=== PATIENT | female | born 1960 | race Caucasian/White ===

== ENCOUNTER → 2022-09-01 13:30 | Outpatient (CLI) | payer OTHER, SELFPAY ==
--- NOTE | 2022-09-01 13:34 | DI.MRI.S_ITS ---
PROCEDURE: MR LUMBAR SPINE WO CON INDICATIONS: Spinal stenosis, lumbar region TECHNIQUE: Noncontrast sagittal T1 spin echo and T2 fast echo, sagittal STIR, and T2 fast spin echo through the lumbar spine. In cases with scoliosis, additional coronal T2 fast spin echo may be performed. COMPARISON: [facility], MR, MR LUMBAR SPINE WITH/WITHOUT CONTRAST, 05/22/2021, 12:29. FINDINGS: Image quality: Excellent. Alignment and Curvature: Trace anterolisthesis L4-5. Otherwise normal alignment. Bone Marrow: L2 vertebral body hemangioma. Minor type 1 reactive Modic changes along the right aspect of the L3-4 level around small Schmorl's nodes. Marrow is otherwise of normal overall signal. No acute vertebral body compression fractures. Spinal Cord: Conus medullaris terminates at the L1 level. Visualized cord demonstrates normal signal and size. Paraspinous Soft Tissues: No paravertebral masses. There are several Tarlov cysts at the S2 level. T12-L1: Mild disc desiccation and height loss. Moderate anterior disc osteophyte. L1-L2: Normal appearance. L2-L3: Minor bilateral foraminal broad-based disc bulges. No foraminal or central canal stenosis. L3-L4: Moderate to large broad-based circumferential disc bulge effacing anterior CSF and flattening thecal sac. Moderate facet arthropathy. Moderate central canal stenosis, secondary to moderate dorsal epidural lipomatosis. This has progressed since the prior study. Minor bilateral foraminal narrowing. L4-L5: Slight disc uncovering and mild circumferential disc bulge. Prominent facet arthropathy and ligamentum flavum hypertrophy. Moderately severe central canal stenosis. Minimal change compared to the prior study. Minor bilateral foraminal narrowing. L5-S1: Chronic broad-based posterior, left central, and left foraminal disc osteophyte which encroaches on the left lateral recess and causes [id number] left foraminal narrowing. Moderate facet arthropathy at this level. IMPRESSION: 1. Progression of diffuse disc bulge at L3-4 resulting in moderate central canal stenosis. 2. Chronic, moderately severe central canal stenosis L4-5 without significant change. 3. Left foraminal narrowing, mild to moderate L5-S1. Dictated by: Rosana Cline M.D. on 09/02/2022 at 10:18 Approved by: Rosana Cline M.D. on 09/02/2022 at 10:56
== END ==
PROVIDERS: Referring Provider Orthopaedic Surgery Orthopaedic Surgery of the Spine; Visit Provider Orthopaedic Surgery Orthopaedic Surgery of the Spine
DX: M48.062 Spinal stenosis, lumbar region with neurogenic claudication (principal); M48.07 Spinal stenosis, lumbosacral region; M51.36 Other intervertebral disc degeneration, lumbar region
CPT/HCPCS: 72148

== ENCOUNTER → 2022-09-23 09:47 | Outpatient (CLI) | payer OTHER, SELFPAY ==
[2022-09-23 11:02] LABS: Add Manual Diff / Slide Review NO; Basophils Absolute Auto 100 /uL (0-100); Basophils Percent Auto 0.7 % (0-2); Eosinophils Absolute Auto 100 /uL (0-450); Eosinophils Percent Auto 1.7 % (2-4); Hematocrit 44.5 % (36-46); Lymphocytes Absolute Auto 3000 /uL (1100-4500); Lymphocytes Percent Auto 41.9 % (25-40); Mean Corpuscular HGB Conc 33.7 % (30-36); Mean Corpuscular Hemoglobin 31.1 PG (26-34); Mean Corpuscular Volume 92.2 fL (80-100); Monocytes Absolute Auto 700 /uL (0-900); Monocytes Percent Auto 10.1 % (3-14); Neutrophils Absolute Auto 3300 /uL (1500-7000); Neutrophils Percent Auto 45.6 % (50-75); Platelet Count 255 X10^3/uL (150-400); Red Blood Cell Count 4.83 X10^6/uL (4.0-5.2); Red Cell Distribution Width 12.9 % (11.6-14.8); White Blood Cell Count 7.2 X10^3/uL (4.5-11.0)
[2022-09-23 12:14] LABS: BUN Creatinine Ratio 15.8 (6-22); Blood Urea Nitrogen 12 mg/dL (7-17); Calcium 9.4 mg/dL (8.4-10.2); Carbon Dioxide 30 mmol/L (22-32); Chloride 104 mmol/L (98-107); Estimated Glomerular Filt Rate > 60 mL/min (>60); Glucose 95 mg/dL (70-100); HEMOLYSIS < 15 (0-50); Sodium 137 mmol/L (137-145)
[2022-09-24 07:10] LABS: Labcorp Hemoglobin (Hb) A1c 5.7 % (4.8-5.6)
== END ==
PROVIDERS: PCP Student in an Organized Health Care Education/Training Program; Referring Provider Orthopaedic Surgery Orthopaedic Surgery of the Spine; Visit Provider Orthopaedic Surgery Orthopaedic Surgery of the Spine
DX: Z01.818 Encounter for other preprocedural examination (principal); Z01.812 Encounter for preprocedural laboratory examination; R73.9 Hyperglycemia, unspecified
CPT/HCPCS: 36415; 80048; 83036; 85025; 93005; 93010

== ENCOUNTER → 2022-11-06 15:11 | Outpatient (CLI) | payer OTHER, SELFPAY ==
--- NOTE | 2022-11-06 15:14 | DI.CT.S_ITS ---
PROCEDURE: CT LUMBAR SPINE WO CON INDICATIONS: LUMBAR STENOSIS TECHNIQUE: Noncontrast 3 mm thick sections acquired from the T12 level to the sacrum. Sagittal and coronal reformats were constructed. For radiation dose reduction, the following was used: automated exposure control. COMPARISON: [facility], MR, MR LUMBAR SPINE WO CON, 09/01/2022, 13:51. FINDINGS: Image quality: Excellent. Bones: 3 mm grade 1 anterolisthesis at L4-5. No acute vertebral body compression fractures. No suspicious lytic or blastic bony lesions. No pars defects. Typically incidental Tarlov cysts are seen in the sacrum. T12-L1: Mild loss of disc space height with mild disc bulging, which does not result in significant spinal canal stenosis or neural foraminal narrowing. L1-L2: No significant spinal canal stenosis or neural foraminal narrowing. L2-L3: No significant spinal canal stenosis or neural foraminal narrowing. L3-L4: Moderate circumferential disc bulging is seen as well as mild bilateral facet hypertrophy and buckling of the ligamentum flavum. Findings result in moderate narrowing of the spinal canal and mild bilateral neural foraminal narrowing. L4-L5: Grade 1 anterolisthesis with uncovering of the disc space and circumferential disc bulging as well as moderate to severe bilateral facet hypertrophy and buckling of the ligamentum flavum. Findings result in moderate to severe narrowing of the spinal canal as well as mild bilateral neural foraminal narrowing. L5-S1: Loss of disc space height with circumferential disc-osteophyte complex and mild bilateral facet hypertrophy, which result in moderate left and mild right neural foraminal narrowing. Soft tissues: No retroperitoneal masses or hematomas. Visualized aorta is normal in caliber. Status post cholecystectomy. Colonic diverticulosis. IMPRESSION: 1. At L4-5, degenerative changes and grade 1 anterolisthesis result in moderate to severe narrowing of the spinal canal and mild bilateral neural foraminal narrowing. 2. At L3-4, degenerative changes result in moderate narrowing of the spinal canal and mild bilateral neural foraminal narrowing. 3. Additional multilevel degenerative disc disease and facet hypertrophy as described in detail in the body of the report. No high-grade neural foraminal narrowing. Approved by: Napoleon Zambrano M.D. on 11/07/2022 at 12:31
== END ==
PROVIDERS: PCP Student in an Organized Health Care Education/Training Program; Referring Provider Orthopaedic Surgery Orthopaedic Surgery of the Spine; Visit Provider Orthopaedic Surgery Orthopaedic Surgery of the Spine
DX: M48.062 Spinal stenosis, lumbar region with neurogenic claudication (principal); M48.07 Spinal stenosis, lumbosacral region; M47.816 Spondylosis without myelopathy or radiculopathy, lumbar region; M47.817 Spondylosis without myelopathy or radiculopathy, lumbosacral region; M51.36 Other intervertebral disc degeneration, lumbar region; M43.16 Spondylolisthesis, lumbar region
CPT/HCPCS: 72131

== ENCOUNTER 2022-12-11 10:07 | Inpatient (IN) | payer OTHER, SELFPAY ==
[2022-11-11 16:33] VITALS: BMI 35.5
[2022-12-11] VITALS (10 sets, daily range): BP systolic 95–135; BP diastolic 66–90; PULSE 86–109; RESP 9–17; TEMP 35.8–37.1; O2SAT 94–111; BMI 35.8
--- NOTE | 2022-12-11 | DI.RAD.S_ITS ---
PROCEDURE: XR LUMBAR SPINE 2-3V INDICATIONS: L4-5 L5-S1 TLIF TECHNIQUE: Two spot fluoroscopic intraoperative images of the lumbar spine were acquired. COMPARISON: [facility] [place] [facility] XR LUMBAR SPINE 2 OR 3 VIEWS, 08/22/2022, 15:01. FINDINGS: Fluoroscopy was utilized for intraoperative guidance. Two spot images demonstrate posterior fixation hardware at the L4 through S1 levels with bilateral pedicle screws and interbody rods as well as disc spacers. IMPRESSION: Intraoperative images demonstrate posterior fixation changes at L4-5 and L5-S1. Approved by: Napoleon Zambrano M.D. on 12/11/2022 at 18:43
[2022-12-11] MEDS: GABAPENTIN 300 MG CAPSULE PO (10:57)
[2022-12-11] MEDS: ACETAMINOPHEN 325 MG TABLET 975 MG PO (10:57)
[2022-12-11] MEDS: LACTATED RINGERS 1,000 ML 42 ML IV (10:57)
--- NOTE | 2022-12-11 11:31 | PM.PREOP ---
Pre-operative Note COVID-19 Criteria for continued procedure: Expected advancement of disease process, Possibility delay results in more complex future surgery or treatment, Increased loss of function, Continuing or worsening of significant or severe pain, Deterioration of the patient's condition or overall health and Delay expected to result in less-positive ultimate med/surg outcome Interval Note History & Physical reviewed/Exam performed by Physician: Yes Changes to H&P: No
[2022-12-11] MEDS: CEFAZOLIN 2 GM/100 ML PREMIX 100 ML IV (12:25)
[2022-12-11] MEDS: BUPIVACAINE 0.25% (PF) 60 ML, EPINEPHrine 0.15 MG INJ (13:32)
[2022-12-11] MEDS: BUPIVACAINE LIPOSOME 266 MG/20 ML VIAL INJ (13:32)
--- NOTE | 2022-12-11 14:37 | SUR.OPER ---
Prone on spine table, head in foam head support, padded chest and pelvic supports, gel pad at knees, lower legs supported by pillows; nipples, genitalia and toes free of pressure, arms secured on foam padded arm boards at <90 degrees abduction. Tape over blanket at thigh secured to table.
--- NOTE | 2022-12-11 16:21 | P.OP_ITS ---
Operative Date/Time/Diagnoses Date of procedure: 12/11/22 Time of procedure: 12:30 Pre-op diagnosis: 1. L4-5, L5-S1 spinal stenosis with neurogenic claudication 2. L4-5, L5-S1 spondylosis with radiculopathy Post-op diagnosis: same Procedure & Clinicians Procedure: 1. L4-5, L5-S1 Postero-lateral and posterior interbody fusion 2. L4-5, L5-S1 interbody cage placement. 3. L4-5, L5-S1 decompressive laminectomy with bilateral facetecomies 4. L4-5, L5-S1 Posterior segmental instrumentation 5. [place] of bone marrow from iliac crest 6. Utilization of microsurgical technique and operating microscope Same procedure as scheduled: Yes Indications: Patient has been having chronic back pain and worsening lumbar radiculopathy and symptoms of neurogenic claudication. Patient failed multiple conservative management with worsening pain weakness and numbness in her lower extremity. Patient has been having difficulty performing activity of daily living. After discussing risks benefits of treatment options, patient elected proceed with surgery. Surgeon: Ignacio Hall Client Relations Specialist: Padmaja Briseno Click Yes if Unassisted: No Anesthesia Type: General Operative Notes Closure Type: primary Specimen(s): none sent Prosthetic devices, grafts, tissues, transplants, or devices: Globus CREO MIS screws, Rise cages Applied: catheter Estimated Blood Loss (mL): 100 Blood products transfused: none Procedure in detail: Patient was seen in the preoperative area. Risks and benefits of the surgery was discussed with the patient. Informed consent was obtained from the patient and placed in the chart. Surgical site was marked. Patient was taken to the operative room. General anesthesia was administered. Prophylactic antibiotic was given to the patient less than 30 min before the incision was made. Patient was placed into a prone position on the Ovi table. Patient's back was then prepped and draped in the sterile fashion. Time-out was performed at this time. After patient was prepped and draped, patient's PSIS was palpated and marked bilaterally. Small 1 cm incision was made over the PSIS for placement of the reference probes. Two trocar was placed into the PSIS 1 on each side. The reference probe was attached to the trocar of the reference apparatus. At this time the C-arm imaging was used to confirm AP and lateral of L4-L5, L5- S1 vertebrae and merged the C-arm imaging using the [employer] robotic navigation system with the CT of the lumbar spine. After successful merging was completed and confirmed, skin marker was used to clay out the skin incision using the [employer] robotic arm. Bilateral incision was made at this time. Pre templated trajectory was used and guided using the [employer] robotic navigation system for bilateral L4, L5, S1 pedicle screw placement. This was done by using the robotic arm to guide the high-speed bur to make a cortical entry point. Next a drill was placed also using the robotic arm and guided using the navigation system drilling partially through bilateral L4, L5 and S1 pedicles. Next L4, L5, S1 pedicle screws it was pre templated and measured was placed onto the power feeder driver and inserted into the pedicles bilaterally. After all 6 screws were placed C-arm imaging was taken of both AP and lateral to confirm the placement. Excellent placement of the screws were confirmed and a matched precisely with the pre planned screw placement using the navigation system. MARs retractor was inserted using Soricimedivation guidence. Globus MARS retractors was placed inside the incision and docked onto the L4 and L5 lamina. Using microsurgical technique and operating microscope, a L4, L5 laminectomy and L4-5, L5-S1 facetectomy was performed using a Kerrison rongeur. The laminectomy and facetectomy was performed in order to decompress patient's cauda equina as well as the nerve roots exiting at the L4-5, L5-S1 level. Patient was found have severe lateral recess and neural foramen stenosis which was fully decompressed after the laminectomy facetectomy. More than 75% of the facets were removed during the process of decompression rendering L4-5, L5-S1 level grossly unstable and required a fusion procedure at the same time. The disc space at L4-5, L5-S1 was identified, and a total diskectomy was performed at L4-5, L5-S1 level. The endplates were decorticated using a rasp and shaver. The total diskectomy and decortication was performed at L4-5, L5-S1 level in order to to accomplish a L4- 5, L5-S1 fusion. The local bone from the laminectomy and facetectomy was saved for local bone grafting. After the total diskectomy and decortication was completed, Trifecta bone graft material was combined with local bone that was harvested earlier. At this time, a separate skin is incision was made over the iliac crest. A Jamshidi needle was inserted into the iliac crest through a separate skin incision. 5 cc of bone marrow aspiration was obtained through the separate skin incision using a Jamshidi needle from the iliac crest. The bone marrow aspiration was combined with local bone and the Trifecta bone grafting material. The bone grafting material was placed into the L4-5, L5-S1 interbody space along with a expandable cage. The cage was expanded to its maximum height using the torque limiting screwdriver. The disc preparation as well as the cage insertion were also performed under navigation guidance. After the cage was placed, AP and lateral C-arm imaging was taken to confirm placement of the cage and excellent position was confirmed. Globus MARS retractor was inserted and docked onto the L4-5, L5-S1 posterolateral gutter on the right side. Using the power drill, posterior- lateral decortication was performed at L4-5, L5-S1 level until bleeding cortical bone was identified. The remaining bone grafting material was placed into the L4-5, L5-S1 posterior lateral gutter he order to accomplish posterolateral fusion at the L4-5, L5-S1 level. At this time the tulips were attached to the L4, L5, S1 pedicle screw shanks. After measuring the length of the rods, they were inserted into the tulips of the pedicle screws and locked in place using locking caps and torque limiting screwdriver bilaterally. Total 6 caps and 2 titanium rods was used in order to complete the posterior instrumentation construct. After all the hardware was placed, and confirmed with AP and lateral C-arm imaging, the wound was then irrigated with sterile normal saline and packed with Ray-Siri gauze for 3 min to accomplish hemostasis. After the gauze was removed the deep fascia was closed with #1 Vicryl suture. The subcutaneous layer was c losed with 2-0 Vicryl. The skin was closed with skin leola. Patient tolerated the procedure well. There were no complications. The Operation could not have been safely performed without compromising the technical result or length of the procedure, without the assistance of a skilled instructor adjunct surgical technician. The instructor adjunct surgical technician was medically necessary for proper positioning, retraction and manipulation of instruments, proper exposure, surgical preparation, and manipulation of tissue. Neuro monitoring system was used to monitor patient's neurologic status throughout entire procedure. There was no disturbance of the neural monitoring signals throughout the case. Complications: none Post-operative Condition: stable Disposition: PACU Plan for aftercare: Admit to inpatient hospital
[2022-12-11] MEDS: HYDROMORPHONE 1 MG INJ IV (16:54)
[2022-12-11] MEDS: OXYCODONE IR 5 MG TABLET PO (17:00)
[2022-12-11] MEDS: LACTATED RINGERS 1,000 ML 125 ML IV (17:51)
[2022-12-11] MEDS: CEFAZOLIN VIAL 3 GM in SODIUM CHLORIDE 0.9% 100 ML IV (20:47)
[2022-12-11] MEDS: TIMOLOL 0.5% OPHTH 1 DROPS EYE-BOTH (20:48)
[2022-12-11] MEDS: SENNOSIDES 8.6 MG TABLET 17.2 MG PO (20:48)
[2022-12-11] MEDS: DOCUSATE 100 MG CAPSULE PO (20:48)
[2022-12-11] MEDS: OXYCODONE IR 10 MG TABLET PO (20:55)
[2022-12-12] MEDS: LACTATED RINGERS 1,000 ML 125 ML IV (00:27)
[2022-12-12] MEDS: CEFAZOLIN VIAL 3 GM in SODIUM CHLORIDE 0.9% 100 ML IV (04:37)
[2022-12-12 05:09] LABS: Hematocrit 38.7 % (36-46); Hemoglobin 13.1 g/dL (12.0-16.0)
--- NOTE | 2022-12-12 07:52 | PM.PNPO.1 ---
Subjective Subjective Date Patient Seen: 12/12/22 Time Patient Seen: 07:52 Interval history: Pain has been [id number]. Denies fever or chills. No nausea or vomiting. Patient has yet to work with physical therapy he will be out of bed. Patient's is home to assist her. Exam Vital Signs (past 8 hours): Oxygen Delivery Method Room Air Oxygen Flow Rate 2 Narrative Exam Narrative: 62-year-old female resting comfortably in bed in no apparent distress. Motor functions intact bilateral lower extremities. Const General: cooperative and comfortable Nutritional Appearance: average body habitus Orientation: alert Resp Effort & Inspection: normal respiratory effort and able to speak in complete sentences Objective Labs 12/12/22 04:41 Labs: Laboratory Results - last 24 hr 12/12/22 04:41 Hgb 13.1 Hct 38.7 PFSH Medical History Glaucoma Hidradenitis suppurativa Hypertension Surgical History History of cardiac radiofrequency ablation Hx of cholecystectomy Social History household members: spouse Smoking Status: Never smoker alcohol intake: former Assessment & Plan Post-op Postoperative Procedures: Procedures Operation Date: 12/11/22 11:45 Actual Procedure Side Surgeon p L4-5, L5-S1 TLIF with posterior instrumentation -Robot Ignacio Hall MD Postoperative day: 1 Postoperative plan: routine post-op care Postoperative plan narrative: Disposition likely home today or tomorrow Quality VTE Deep Vein Thrombosis/Pulmonary Embolism Present on Admission: No
[2022-12-12] MEDS: OXYCODONE IR 10 MG TABLET PO ×2 (07:57→12:52)
[2022-12-12] MEDS: DOCUSATE 100 MG CAPSULE PO (08:02)
[2022-12-12] MEDS: TIMOLOL 0.5% OPHTH 1 DROPS EYE-BOTH (08:02)
[2022-12-12 08:10] VITALS: BP 113/63; PULSE 68; RESP 16; TEMP 36.2; O2SAT 96
[2022-12-12] MEDS: hydrOXYzine pamoate 25 MG CAPSULE PO (09:11)
[2022-12-12] MEDS: ACETAMINOPHEN 325 MG TABLET 650 MG PO (09:11)
--- NOTE | 2022-12-12 09:48 | OT.IP.EVAL ---
Current Diagnoses Spondylolisthesis, lumbar region (12/11/22) Spinal stenosis, lumbar region with neurogenic claudication (12/11/22) Surgery Performed Operation Date: 12/11/22 11:45 Actual Procedures p L4-5, L5-S1 TLIF with posterior instrumentation -Robot - Ignacio Hall MD Past Medical History (Last Reviewed 12/12/22 @ 07:53 by Braxton Claros PA-C) Glaucoma Hidradenitis suppurativa Hypertension Surgical History (Last Reviewed 12/12/22 @ 07:53 by Braxton Claros PA-C) History of cardiac radiofrequency ablation Hx of cholecystectomy Occupational Therapy Inpatient Evaluation/Re-Eval M1 PT/OT-IP Prior Functional Status Start: 12/12/22 10:18 Freq: NEEDED Status: Active Protocol: Document 12/12/22 09:10 [facility] (Rec: 12/12/22 10:33 [facility] [id number]) Medical Review Prior Functional Status Communication Independent Mobility and Gait Pt had pain but did not use a device to walk with. Activities of Daily Living and IADL's Pt had pain with ADL and IADL needs. Social History Household Members spouse Living Arrangements House Number of Floors (Floors) One Floor Number of Stairs To Enter/Railing? Pt has 2.5 steps with no rails to enter the house. Pt's mom lives with the pt. Home Environment High Toilet,Walk in Shower Home Equipment Front Wheel Walker,Straight Cane,Hand Held Shower,Marketing Services Manager, Sock Aid,Grab Bars In Shower Additional Social History Comment Pt's to be home to assist. M2 OT-IP Current Condition Start: 12/12/22 10:18 Freq: Status: Active Protocol: Document 12/12/22 09:10 [facility] (Rec: 12/12/22 10:33 [facility] [id number]) Occupational Therapy Current Condition Current Condition Evaluation Date 12/12/22 Treatment Diagnosis S/P L4-5, L5-S1 TLIF Diagnosis Onset Date 12/11/22 Post Operative Precautions Lumbar Precautions Log Roll,No Twisting,Limit Bending,Lifting Restriction of 10 lbs,Gait Belt above Incisional Area M3 OT- IP Subjective and Pain Start: 12/12/22 10:18 Freq: Status: Active Protocol: Document 12/12/22 09:10 [facility] (Rec: 12/12/22 10:33 [facility] [id number]) OT- Subjective Occupational Therapy Visit Type Type Initial Evaluation Visit Start Time 09:10 Visit Stop Time 09:48 Total Visit Minutes 38 Occupational Therapy Visit Comments Patient Comments Pt agreed to get up and her present in the room. Patient/Caregiver Goals To go home. OT Pain Assessment Pain When Pain Assessed At Rest Pain Present Pain Present Pain Reported Location Lower Back Intensity 3 Scale Used Numeric (0 - 10) M4 OT- IP ADL's Start: 12/12/22 10:18 Freq: Status: Active Protocol: Document 12/12/22 09:10 [facility] (Rec: 12/12/22 10:33 [facility] [id number]) OT [id number]-[id number]-[id number] General Evaluation Self-Feeding Ability Independent OT ADL-Grooming General Evaluation Grooming Ability Independent Areas Needing Assistance Retrieving/Set-up of Grooming Items Comments OT Grooming Comments Pt able to do while standing with FWW in front of her. OT ADL-Oral Care General Eval Oral Care Ability Independent Comments Oral Care Comments Pt educated to hinge at her hip in order to spit in to the sink to best follow her back precautions. OT ADL-Dressing General Eval Lower Body Dressing Ability Maximum Assistance Areas Needing Assistance Socks Comments OT Dressing Comments Pt has all LB dressing equipment at home and that her will be able to assist her as well. OT ADL-Toileting Comments OT Toileting Comments Pt able to practice sitting down to the toilet and unable to reach to wipe at this time. Educated pt on standing to wipe , use of wet wipes, toilet paper aid, or just getting assist. OT ADL-Bathing Comments OT Bathing Comments Not performed. Pt states to use her mom's bathroom with the walk in shower and stool. M5 OT- IP IADL's Start: 12/12/22 10:18 Freq: Status: Active Protocol: Document 12/12/22 09:10 [facility] (Rec: 12/12/22 10:33 [facility] [id number]) OT-Instrumental Activities of Daily Living Deficits IADL Deficits Identified Deficits Home Safety Awareness Awareness of Need for Assistance at Home Good Awareness Ability to Problem Solve Emergency Able to Problem Solve Situations Home Safety Comments Pt has a supportive to be able to assist with her needs. Meal Preparation Meal Preparation Caregiver Provides Assist Surg Rn Surg Rn Caregiver Provides Assist M6 OT- IP Functional Cognition Start: 12/12/22 10:18 Freq: Status: Active Protocol: Document 12/12/22 09:10 [facility] (Rec: 12/12/22 10:33 [facility] [id number]) Cognitive Factors Limiting Selfcare Function Cognitive Ability Level of Alertness Alert Patient Orientation Name,Place,Situation Attention Span Ability Capable of Focused Attention, Capable of Sustained Attention Ability to Follow Commands Able to Follow One Step Commands Safety Awareness Decreased Recall of Precautions Cognitive Comments Cognitive Assessment Comments Pt initially not able to recall her back precautions. Pt after education able to follow her back precautions for ADL and mobility needs. OT- Vision and Hearing OT- Hearing Assessment OT- Hearing Assessment Hearing Impaired,Use of Hearing Aids OT- Vision Assessment Visual Acuity Glasses All The Time,Contact Lenses Visual Attentiveness WFL Occular Pursuits WFL M7 OT- IP Mobility and Balance Start: 12/12/22 10:18 Freq: Status: Active Protocol: Document 12/12/22 09:10 [facility] (Rec: 12/12/22 10:33 [facility] [id number]) OT- Bed Mobility Assessment Supine to Sit Supine to Sit Assist Contact Guard Assistance Scooting Scooting to Edge of Bed Contact Guard Assistance OT-Transfer Assessment Sit to and From Stand Sit to and from Stand Contact Guard Assistance Transfers Transfer Ability Contact Guard Assistance Technique Transfer Destination Bed,Chair,Toilet Transfer Technique Stand Step Pivot Devices Transfer Assistive Devices Gait Belt,Front Wheeled Walker Comments Mobility Comments Able to educated pt's how to jim/doff the gait belt and he was able to assist pt to walk into and out of the bathroom. Pt's BP 103/53 while sitting and pt states starting to feel sweaty and looking pale while at the sink. Able to get pt to the recliner and recliner pt back and place a wet cloth on her forehead. After several attempts able to get a bp 95/54 and feeling better. Able to notify pt's nurse of low BP. pt given ice packs for her back. OT- Balance Assessment Sitting Balance and Reactions Static Sitting Balance Ability Normal Dynamic Sitting Balance Ability Good Standing Balance and Reactions Static Standing Balance Ability Good Dynamic Standing Balance Ability Fair M8 OT- IP Objective Assessments Start: 12/12/22 10:18 Freq: Status: Active Protocol: Document 12/12/22 09:10 [facility] (Rec: 12/12/22 10:33 [facility] [id number]) OT-Muscle Tone Assessment Muscle Tone WNL Yes M9 OT- IP Assessment and Plan Start: 12/12/22 10:18 Freq: Status: Active Protocol: Document 12/12/22 09:10 [facility] (Rec: 12/12/22 10:33 [facility] [id number]) OT Summary Assessment and Plan Potential Rehabilitation Potential Good Analytic Complexity at Evaluation Low Summary OT Impairments Pain,Balance,Functional Mobility,Dressing,Toileting, Bathing,Toilet Transfers, Shower Transfers Progress Towards Goals Slow Progress due to Pain,Slow Progress due to Medical Issues Assessment Summary Pt low complexity and main barriers are steps, low BP, and will need assist for ADl and mobility needs. Able to initiate caregiver training with pt's supportive . Pt looking to go home with assist when medically stable. Goals Dressing Goal Independent Toileting Goal Independent Bathing Goal Independent Toilet Transfer Goal Independent Shower Transfer Goal Independent Days to Meet Goals 5 Frequency of Treatment Frequency Of Treatment Once a Day Treatment Plan OT Treatment Plan ADL Training,Functional Mobility,Patient/Family Education,Discharge Planning Discharge Recommendations OT Discharge Recommendations Home with Assistance Transportation Needs at Discharge Private Vehicle
--- NOTE | 2022-12-12 11:03 | PM.DS.1 ---
History of Present Illness History of Present Illness Date Patient Seen: 12/12/22 Time Patient Seen: 07:52 Chief complaint: Lumbar TLIF Narrative: See progress note Discharge Providers Provider Date of admission: 12/11/22 10:07 Discharge Date: 12/12/22 Primary care physician: Laina Umanzor DO Consults: 12/11/22 17:24 Consult to Occupational Therapy Evaluate & Treat Comment: Physician Instructions: Evaluate and treat Consult to Physical Therapy Evaluate & Treat Comment: Physician Instructions: Evaluate and Treat Discharge provider: Braxton Claros PA-C Summary Hospital Course Discharge Diagnosis: 1. L4-5, L5-S1 spinal stenosis with neurogenic claudication 2. L4-5, L5-S1 spondylosis with radiculopathy Hospital Course: 1. L4-5, L5-S1 Postero-lateral and posterior interbody fusion 2. L4-5, L5-S1 interbody cage placement. 3. L4-5, L5-S1 decompressive laminectomy with bilateral facetecomies 4. L4-5, L5-S1 Posterior segmental instrumentation 5. [place] of bone marrow from iliac crest 6. Utilization of microsurgical technique and operating microscope Same procedure as scheduled: Yes Indications: Patient has been having chronic back pain and worsening lumbar radiculopathy and symptoms of neurogenic claudication. Patient failed multiple conservative management with worsening pain weakness and numbness in her lower extremity.? Patient has been having difficulty performing activity of daily living.? After discussing risks benefits of treatment options, patient elected proceed with surgery. Surgeon: Ignacio Hall Dental Laboratory Technician: Padmaja Briseno Click Yes if Unassisted: No Anesthesia Type: General Operative Notes Closure Type: primary Specimen(s): none sent Prosthetic devices, grafts, tissues, transplants, or devices: Globus CREO MIS screws, Rise cages Applied: catheter Estimated Blood Loss (mL): 100 Blood products transfused: none Patient admitted to the hospital for the above-mentioned procedure. Patient consented to the same. Patient taken to operating room on December 11, 2022. Patient underwent lumbar fusion. Patient back in her room recovering well as in stable condition. Patient will mobilize with physical therapy. Limit bending, twisting, lifting. Discharge home today after physical therapy is safe for home environment. Status at Discharge Cognitive/behavioral status at discharge: at baseline, oriented Functional status at discharge: uses cane/walker Overall status at discharge: patient is progressing back to baseline Exam Vital Signs (past 8 hours): - 12/12/22 08:10 12/12/22 08:08 Temperature 97.2 F L Pulse Rate 68 Respiratory Rate 16 Blood Pressure 113/63 Pulse Oximetry 96 Oxygen Delivery Method Room Air Oxygen Flow Rate 0 Oxygen Delivery Method Room Air Oxygen Flow Rate 0 Narrative Exam Narrative: See progress note Objective Labs 12/12/22 04:41 Labs: Laboratory Results - last 24 hr 12/12/22 04:41 Hgb 13.1 Hct 38.7 PFSH Medical History Glaucoma Hidradenitis suppurativa Hypertension Surgical History History of cardiac radiofrequency ablation Hx of cholecystectomy Social History household members: spouse Smoking Status: Never smoker alcohol intake: former Discharge Assessment & Plan Assessment and Plan Assessment: Progressing as expected status post lumbar fusion Plan of Treatment: Discharge home today after physical therapy if safe for home environment Discharge Plan Discharge Plan Patient Disposition: Home Discharge orders & Medications Prescriptions: New acetaminophen 325 mg Tablet 650 mg PO Q6H PRN (Reason: Fever/Mild Pain (1-3)) Qty: 60 0RF docusate sodium 100 mg Capsule 100 mg PO BID Qty: 10 0RF hydroxyzine pamoate 25 mg Capsule 25 mg PO Q4HR PRN (Reason: Nausea And Vomiting) Qty: 20 0RF oxycodone 10 mg Tablet 10 mg PO Q3H PRN (Reason: Pain, Severe (7-10)) Qty: 40 0RF Continued latanoprost 0.005 % Drops 1 drp OPHTHALMIC (EYE) DAILY losartan 25 mg Tablet 25 mg PO DAILY timolol maleate 0.5 % Drops 1 drp OPHTHALMIC (EYE) BID Humira 40 mg/0.8 mL Syringe Kit 40 mg SUBCUT Q2W Ozempic 1 mg/dose (2 mg/1.5 mL) Pen Injector 1 mg SUBCUT QWEEK Follow up/Referrals: Laina Umanzor DO [Primary Care Provider] - Ignacio Hall MD [Physician] - As previously scheduled (Follow up w/ Dr Hall on 12/26/2022 @ 10:30 am at [facility] Diet/Activity/Treatments Diet: Diet as Tolerated Activity: No deep bending or twisting at the waist. No lifting more than 10 pounds. Cold/Heat Therapy: Heating pad to low back as needed for pain. Skin/Wound/Dressing Care Report to your healthcare provider any signs of infection, such as:: chills, fever, night sweats, unusual drainage and unusual redness Dressing: May shower. Keep dressing as dry as possible. If dressing becomes wet or dirty, remove and replace with clean, dry gauze. No bathing or otherwise soaking incisions. Do not apply any creams, lotions, or ointments to incisions. Visit Report/Discharge Packet Instructions: DI for Prescription Opioid Use, DI for Transforaminal Lumbar Interbody Fusion Stand Alone Forms: Patient Portal/API, Stroke Signs & Symptoms, Surgery Discharge Discharge Data Primary Care Provider: Laina Umanzor VTE Deep Vein Thrombosis/Pulmonary Embolism Present on Admission: No
--- NOTE | 2022-12-12 11:04 | PT.IIE ---
Current Diagnoses Spondylolisthesis, lumbar region (12/11/22) Spinal stenosis, lumbar region with neurogenic claudication (12/11/22) Surgery Performed Operation Date: 12/11/22 11:45 Actual Procedures p L4-5, L5-S1 TLIF with posterior instrumentation -Robot - Ignacio Hall MD Surgical History (Last Reviewed 12/12/22 @ 11:05 by Braxton Claros PA-C) History of cardiac radiofrequency ablation Hx of cholecystectomy Medical History (Last Reviewed 12/12/22 @ 11:05 by Braxton Claros PA-C) Glaucoma Hidradenitis suppurativa Hypertension Physical Therapy Inpatient Evaluation/Re-Eval M1 PT/OT-IP Prior Functional Status Start: 12/12/22 10:18 Freq: NEEDED Status: Active Protocol: Document 12/12/22 11:55 AB (Rec: 12/12/22 12:20 AB [id number]) Medical Review Prior Functional Status Medical History Reviewed Yes Communication Independent Mobility and Gait Pt had pain but did not use a device to walk with. Activities of Daily Living and IADL's Pt had pain with ADL and IADL needs. Social History Household Members spouse Living Arrangements House Number of Floors (Floors) One Floor Number of Stairs To Enter/Railing? back door: 3 FABIAN (last step is very small) no hand rails; front/side door: 5 FABIAN 1 hand rail Home Environment High Toilet,Walk in Shower Home Equipment Front Wheel Walker,Straight Cane,Shower Seat without Backrest,Hand Held Shower, Implementation Advisor,Grab Bars In Shower Employment Status Retired Additional Social History Comment Pt's ziggy will be able to assist 21/10 M1 PT/OT-IP Prior Functional Status Start: 12/12/22 11:54 Freq: NEEDED Status: Active Protocol: Document 12/12/22 11:55 AB (Rec: 12/12/22 12:20 AB [id number]) Medical Review Prior Functional Status Medical History Reviewed Yes Communication Independent Mobility and Gait Pt had pain but did not use a device to walk with. Activities of Daily Living and IADL's Pt had pain with ADL and IADL needs. Social History Household Members spouse Living Arrangements House Number of Floors (Floors) One Floor Number of Stairs To Enter/Railing? back door: 3 FABIAN (last step is very small) no hand rails; front/side door: 5 FABIAN 1 hand rail Home Environment High Toilet,Walk in Shower Home Equipment Front Wheel Walker,Straight Cane,Shower Seat without Backrest,Hand Held Shower, Implementation Advisor,Grab Bars In Shower Employment Status Retired Additional Social History Comment Pt's ziggy will be able to assist 24/7 M2 PT-IP Current Condition Start: 12/12/22 11:54 Freq: NEEDED Status: Active Protocol: Document 12/12/22 11:55 AB (Rec: 12/12/22 12:20 AB [id number]) Physical Therapy Current Condition Current Condition Evaluation Date 12/12/22 Treatment Diagnosis s/p lumbar TLIF L4-L5, L5-S1 Onset Date 12/11/22 M3 PT-IP Subjective Start: 12/12/22 11:54 Freq: NEEDED Status: Active Protocol: Document 12/12/22 11:55 AB (Rec: 12/12/22 12:20 AB [id number]) Subjective Physical Therapy Visit Type Type Initial Evaluation Visit Start Time 11:05 Visit Stop Time 11:52 Total Visit Minutes 47 Notes Pt presents in semi supine in recliner with at bedside. Number of HARDBOARD PANEL PRINTER Visits 0 Physical Therapy Visit Comments Patient Comments The pt reports she is not currently experiencing any pain or other symptoms. She is agreeable to PT eval this morning. Patient Goals To return home safely. Therapy Pain Assessment Pain When Pain Assessed During Mobility Pain Present Pain Present Denied Pain M4 PT-IP Mobility and Gait Start: 12/12/22 11:54 Freq: NEEDED Status: Active Protocol: Document 12/12/22 11:55 AB (Rec: 12/12/22 12:20 AB [id number]) PT-Bed Mobility Assessment Rolling Type of Rolling Bilateral Level of Assist Standby Assistance Supine to Sit Supine to Sit Standby Assistance Sit to Supine Sit to Supine Standby Assistance Scooting Scooting to Edge of Bed Independent Scooting Up and Down in Bed Independent PT-Transfer Assessment Sit to and From Stand Sit to and from Stand Standby Assistance,Use of Upper Extremities Equipment Transfer Assistive Device Gait Belt,Front Wheeled Walker Transfers Transfer Destination Bed,Chair,Wheelchair Transfer Technique Stand Step Pivot Transfer Ability Level of Assist Standby Assistance,Use of Upper Extremities Comments Mobility Comments Pt able to transfer with and without FWW. Gait Assessment Gait Gait Assistance Required: Standby Assistance Distance (Feet) 150 Assistive Devices Assistive Device Gait Belt,Straight Cane,Front Wheeled Walker Gait Deviations General Gait Pattern Decreased Stride Length, Decreased Feet Clearance Factors Limiting Gait Function Factors Limiting Gait Function Decreased Activity Tolerance, Decreased Strength Comments Gait Comments Pt able to ambulate 150 ft with FWW and 150 ft with SPC with SBA. Gait deviations are consistent with surgical procedure. Stair Climbing Assessment Evaluation Level of Assist On Stairs Standby Assistance Devices Stair Climbing Assistive Devices Straight Cane,Right Railing Technique/Endurance Stair Climbing Direction Ascend and Descend Stair Climbing Technique Step to Step Number of Steps Climbed 3 Query Text: Stair Climbing Set # Repetitions (reps) 3 Comments Stair Climbing Comments Pt able to ascend/descend steps with step to step pattern using 1 hand rail, SPC and no assitive device with SBA. PT-Balance Assessment Sitting Balance and Reactions Static Sitting Balance Ability Normal Dynamic Sitting Balance Ability Normal Standing Balance and Reactions Static Standing Balance Ability Normal Dynamic Standing Balance Ability Good M5 PT-IP Objective Assessments Start: 12/12/22 11:54 Freq: NEEDED Status: Active Protocol: Document 12/12/22 11:55 AB (Rec: 12/12/22 12:20 AB [id number]) Orientation Orientation/Cognition Level of Alertness Alert Orientation Name,Date,Place,Situation Language Function Ability No Deficits Noted Safety Awareness Understands Safety Issues Memory Description No Deficits Noted Gross Range of Motion Upper Extremity ROM Assessment Within Functional Limits Lower Extremity ROM Assessment Within Functional Limits Strength Upper Extremity Strength Assessment Within Functional Limits Lower Extremity Strength Assessment Within Functional Limits Sensation Assessment Sensation Gross Sensation Right LE Impaired,Left LE Impaired Sensation Description Numbness,Tingling Other Assessments Other Other Assessments At beginning of session, the pt's BP was taken in sitting at 110/65 mmHg with pt denying symptoms. Upon performing STS , the pt denied symptoms and was not orthostatic (BP: 111/ 62 mmHg in standing). After conclusion of PT eval, the pt returned to chair with all needs met, present, and was handed off to RN. M6 PT-IP Treatment Start: 12/12/22 11:54 Freq: NEEDED Status: Active Protocol: Document 12/12/22 11:55 AB (Rec: 12/12/22 12:20 AB [id number]) Physical Therapy Treatment Education Education Provided Precautions,Safety Brace Education Patient,Caregiver M7 PT-IP Assessment and Plan Start: 12/12/22 11:54 Freq: NEEDED Status: Active Protocol: Document 12/12/22 11:55 AB (Rec: 12/12/22 12:20 AB [id number]) PT Summary Assessment and Plan Potential Rehabilitation Potential Excellent Status of Condition at Evaluation Stable Summary Impairments ROM,Strength,Bed Mobility, Transfers,Gait,Activity Tolerance Assessment Summary Ioana Desir is a 62 year old female who is s/p lumbar TLIF L4-L5, L5-S1 performed on 12/11. Today's PT evaluation revealed impairments consistent with this surgical procedure including decreased tolerance to activity, weakness, and gait impairments . The pt is able to perform basic bed mobility independently, but requires SBA for log roll technique due to pain. She is able to perform STS, transfers, ambulation and stairs with SBA . The pt is able to ambulate 150ft with FWW or with SPC, though she requires verbal cues for 2pt gait pattern with SPC. She is also able to ascend/descend 3 steps with SPC, 1 hand rail or no assistive device with SBA. Based on these findings, the pt demonstrates she is safe to discharge to home with the assistance of her due to her surgical precautions. However, she would benefit from skilled PT to improve her impairments during the course of her hospital stay in order to improve her level of function. Goals Bed Mobility Goal Independent Transfer Goal Independent Gait Goal Independent Gait Distance 200 Other Goals Pt to be able to ascend/ descend 3 steps with SPC with independence to show improved strength and ability to perform functional mobility. Days to Meet Goals 5 Frequency of Treatment Frequency Of Treatment Twice a Day Treatment Plan Physical Therapy Treatment Plan Bed Mobility Training,Transfer Training,Gait Training, Therapeutic Exercise,Balance Retraining,Post Op Education, Discharge Planning,Hot or Cold Pack,Neuromuscular Re-ed Other Recommendations and Next Treatment Log roll technique, gait Focus training with LRAD, stairs. Precautions Lumbar Precautions Log Roll,No Twisting,Limit Bending,Lifting Restriction of 10 lbs,Gait Belt above Incisional Area Recommendations To Nursing Amount of Assist Needed Standby Assistance Discharge Recommendations PT Discharge Recommendations Home with Assistance Transportation Needs at Discharge Private Vehicle
--- NOTE | 2022-12-12 11:08 | CM.DANOTE ---
Initial DCP Assessment Note Pt is a 62 yo female, resident of [place], now POD#1 from [facility] by Dr Hall PCP: Laina Umanzor Payer: Coy Reviewed chart, pt discussed in multidisciplinary rounds this morning. Therapy has cleared pt for return home w/family to assist and pt has planned for home, DC order from Ortho has already been initiated this morning. No barriers identified at this time to patient's safe discharge home w/family to assist; close outpatient f/u recommended. KRZYSZTOF Uriarte Discharge Planning/Care Management CM Discharge Assessment Start: 12/12/22 11:05 Freq: Status: Active Protocol: Document 12/12/22 11:05 LITO (Rec: 12/12/22 11:08 LITO [id number]) Discharge Planning Assessment Assigned Pollution Control Technician [email or web address] Stout DPOA/Assigned Designee Name Diony Desir Contact Information [phone] Advance Directives? Yes Advance Directives on File Yes History Provided By Patient,Medical Record Prior Living Arrangements House Household Members spouse Type of transporation used prior to Drives own vehicle admit Independent with ADL's Yes Is patient alert and oriented? Yes Patient/Family Preference OP PT Therapy Barriers to Discharge No Discharge Plan Home Transportation Arrangement Spouse Referrals Initiated None needed
== END 2022-12-12 14:15 | disposition home or self-care (01) | DRG 455 ==
PROVIDERS: Admitting Provider Orthopaedic Surgery Orthopaedic Surgery of the Spine; PCP Student in an Organized Health Care Education/Training Program; Referring Provider Student in an Organized Health Care Education/Training Program; Visit Provider Orthopaedic Surgery Orthopaedic Surgery of the Spine
PROC: 01NB0ZZ Release Lumbar Nerve, Open Approach (ICD-10-PCS; principal; 2022-12-11 11:45)
DX: M47.26 Other spondylosis with radiculopathy, lumbar region (principal); M48.062 Spinal stenosis, lumbar region with neurogenic claudication; I10 Essential (primary) hypertension
CPT/HCPCS: 36415; 72100; 76000; 85014; 85018; 97161; 97165; 97530; 97535; C1713; C9290; J0171; J0330; J0690; J1100; J1170; J2250; J2405; J2704; J3010